=== PATIENT | female | born 1985 | race African-American/Black ===

== ENCOUNTER 2017-03-15 17:14 | Emergency (ER) | payer OTHER ==
[~2017-03-15] VITALS: Ht 167.6 cm; Wt 74.8 kg
[2017-03-15 17:37] VITALS: BP 105/77
[2017-03-15 18:07] LABS: APPEARANCE,URINE CLEAR; KETONES,URINE NEGATIVE (NEGATIVE); LEUKOCYTE ESTERASE ,URINE NEGATIVE (NEGATIVE); NITRITE,URINE NEGATIVE (NEGATIVE); PH,URINE 8 (4.5-8.0); PROTEIN,URINE NEGATIVE (NEGATIVE); UROBILINOGEN,URINE 4 MG/DL (0.0-1.0)
[2017-03-15] MEDS ORDERED: Ketorolac 30mg Inj IM ONE (18:30)
[2017-03-15] MEDS ORDERED: Methocarbamol 750mg tab ORAL ONE (18:30)
[2017-03-15] MEDS ORDERED: IBUPROFEN600 MG ORAL (18:31)
[2017-03-15] MEDS ORDERED: ROBAXIN-750750 MG PO (18:31)
[2017-03-15 18:50] VITALS: BP 105/77
--- NOTE | 2017-03-15 21:58 | Emergency Room Report ---
History of Present Illness General Chief Complaint: Back Pain-No Injury Source: Patient Present Illness HPI The patient is a 31-year-old female presenting with left lower back pain which began 2 days prior for no known reason. Pain is described as an 8/10 dull ache it is worse with movement such as bending down. She denies prior injury to this area. She denies any radiating pain. She has not tried any medication. She denies any other symptoms including N, V, F, chills, dysuria, hematuria, increased urinary frequency, vaginal DC, abd pain, CP, SOB Allergies: Coded Allergies: No Known Allergies (Unverified , 03/15/17) Patient History Past Medical History: see triage record Pertinent Family History: none Now: No Reviewed Nursing Documentation: PMH: Agreed, PSxH: Agreed Nursing Documentation-PMH Past Medical History: No Stated History Review of Systems All Other Systems: negative except mentioned in HPI Physical Exam Vital Signs Date Time Temp Pulse Resp B/P Pulse Ox O2 Delivery O2 Flow Rate FiO2 03/15/17 17:28 98.1 96 15 108/73 98 Room Air Sp02 EP Interpretation: reviewed, normal General Appearance: no apparent distress, alert, GCS 15, non-toxic Head: normocephalic, atraumatic Eyes: bilateral eye PERRL, bilateral eye normal inspection Respiratory: chest non-tender, lungs clear, normal breath sounds, speaking full sentences Gastrointestinal: normal bowel sounds, non tender, soft, non-distended, no guarding, no rebound Genitourinary: normal inspection, no CVA tenderness Musculoskeletal: gait/station normal, normal range of motion, no calf tenderness, tender - L lower paraspinous muscles Neurologic: alert, oriented x3, responsive, motor strength/tone normal, sensory intact, speech normal Psychiatric: judgement/insight normal, memory normal, mood/affect normal, no suicidal/homicidal ideation Skin: normal color, no rash, warm/dry, well hydrated Lymphatic: no adenopathy Medical Decision Making PA Attestation Dr. Sandoval is my supervising physician. Patient management was discussed with my supervising physician Diagnostic Impression: Primary Impression: Muscle strain ER Course The patient is a 31-year-old female presenting with left lower back pain which began 2 days prior Ddx considered include but not limited to lumbar strain, degenerative disease, pyelonephritis PE; vitals WNL. NAD. Back: No obvious deformity. No midline tenderness. Full active range of motion. No CVA tenderness. No lesions, abrasions or ecchymosis seen. + TTP over the L lower paraspinous muscles normal gait Urinalysis is unremarkable. The patient is given Toradol and Robaxin for pain with good relief. She will be discharged home with a prescription for Motrin and Robaxin. ER precautions given Laboratory Tests Test 03/15/17 18:00 Urine Color Pale yellow Urine Appearance Clear Urine pH 8 (4.5-8.0) Urine Specific [place] 1.015 (1.005-1.035) Urine Protein Negative (NEGATIVE) Urine Glucose (UA) Negative (NEGATIVE) Urine Ketones Negative (NEGATIVE) Urine Occult Blood Negative (NEGATIVE) Urine Nitrite Negative (NEGATIVE) Urine Bilirubin Negative (NEGATIVE) Urine Urobilinogen 4 MG/DL (0.0-1.0) H Urine Leukocyte Esterase Negative (NEGATIVE) Urine HCG, Qualitative Negative Lab Results Impression Unremarkable Last Vital Signs Date Time Temp Pulse Resp B/P Pulse Ox O2 Delivery O2 Flow Rate FiO2 03/15/17 18:50 97.9 92 15 105/77 98 Room Air Status: improved Disposition: HOME, SELF-CARE Condition: Improved Scripts Methocarbamol* (ROBAXIN-750*) 750 Mg Tablet 750 MG PO TID, #21 TAB 0 Refills Prov: LINDA NOGUERA.Mukund. 03/15/17 Ibuprofen* (MOTRIN*) 600 Mg Tablet 600 MG ORAL Q8H Y for For Pain, #30 TAB 0 Refills Prov: LINDA NOGUERA P.A. 03/15/17 Referrals: NATASHA DIAS [facility],REFERRI (PCP) Patient Instructions: Back Pain, Adult Additional Instructions: I discussed my findings with the patient. All questions and concerns have been answered. Treatment and medication compliance have been addressed. I advised the patient that they need to follow up with PMD in 3-5 days. Return to ED if pain remains or worsens, numbness or tingling occurs, new rash is noticed, fever is noticed, or if needed for any reason. Patient verbalized understanding of discharge instructions. LINDA NOGUERA Mar 15, 2017 21:58
== END 2017-03-15 18:52 | disposition home or self-care (01) ==
LOC: EMR 18:05
DX: S39.012A Strain of muscle, fascia and tendon of lower back, initial encounter (principal); X58.XXXA Exposure to other specified factors, initial encounter; Y93.9 Activity, unspecified; Y92.9 Unspecified place or not applicable
CPT/HCPCS: 81003; 81025; 96372; 99284; J1885

== ENCOUNTER 2017-12-25 11:17 | Emergency (ER) | payer OTHER ==
[~2017-12-25] VITALS: Ht 167.6 cm; Wt 70.3 kg
[~2017-12-25 11:17] MED LIST: IBUPROFEN600 MG ORAL; ROBAXIN-750750 MG PO
[2017-12-25 11:54] VITALS: BP 110/70
[2017-12-25] MEDS ORDERED: IBUPROFEN800 MG ORAL (12:22)
[2017-12-25] MEDS ORDERED: ROBAXIN-750750 MG PO (12:22)
[2017-12-25] MEDS ORDERED: Methocarbamol 750mg tab ORAL ONE (12:30)
--- NOTE | 2017-12-25 12:38 | Emergency Room Report ---
History of Present Illness General Chief Complaint: Lower Back Pain or Injury Source: Patient Present Illness HPI 32YOF with 2-3 days low back pain Heavy lifting/moving at home No fever/chills, urinary complaints. Pain worse with movement, bending over Denies lower extremity weakness, urinary/fecal incontinence Took motrin once with mild improvement Allergies: Coded Allergies: No Known Allergies (Unverified , 03/15/17) Patient History Past Medical History: none Past Surgical History: none Pertinent Family History: none Social History: Denies: smoking, alcohol use, drug use Last Menstrual Period: 2 weeks ago Now: No Immunizations: UTD Reviewed Nursing Documentation: PMH: Agreed, PSxH: Agreed Nursing Documentation-PMH Past Medical History: No History, Except For Hx Gastrointestinal Problems: Yes - gastritis, GERD Review of Systems All Other Systems: negative except mentioned in HPI Physical Exam Vital Signs Date Time Temp Pulse Resp B/P (MAP) Pulse Ox O2 Delivery O2 Flow Rate FiO2 12/25/17 11:30 97.9 101 18 109/71 98 Room Air Sp02 EP Interpretation: reviewed, normal General Appearance: normal inspection, well appearing, no apparent distress, alert, GCS 15, non-toxic Head: normocephalic, atraumatic Eyes: bilateral eye PERRL, bilateral eye EOMI ENT: normal ENT inspection, hearing grossly normal, normal pharynx, no angioedema, normal voice, TMs + canals normal, uvula midline, moist mucus membranes Neck: normal inspection, full range of motion, supple, thyroid normal, no meningismus, no bony tend Respiratory: normal inspection, lungs clear, normal breath sounds, no rhonchi, no respiratory distress, no retraction, no accessory muscle use, no wheezing, speaking full sentences Cardiovascular #1: regular rate, rhythm, no edema, no JVD, normal capillary refill Gastrointestinal: normal inspection, normal bowel sounds, non tender, soft, no mass, no peritonitis, non-distended, no guarding, no hernia, no pulsatile mass Genitourinary: no CVA tenderness Musculoskeletal: normal inspection, back normal, normal range of motion, no calf tenderness, pelvis stable, Adrienne's Sign negative Neurologic: normal inspection, alert, oriented x3, responsive, well logging mud analysis captain III-XII nml as tested, motor strength/tone normal, cerebellar normal, normal gait, speech normal Psychiatric: normal inspection, judgement/insight normal, mood/affect normal, no suicidal/homicidal ideation, no delusions Skin: normal inspection, normal color, no rash Lymphatic: normal inspection, no adenopathy Medical Decision Making Diagnostic Impression: Primary Impression: Muscle strain ER Course VSS, Afebrile Non-focal back on exam Likely MSK strain No concern for cord compression or pyelo ER course: Patient has remained stable during ED stay. Disposition: Patient is to be discharged to home. Prescriptions given are motrin, robaxin Patient is instructed to follow up with their primary care doctor within 5 days. Strict return precautions discussed with patient such as fever, chills, worsening/severe pain, nausea, vomiting, which may indicate severe illness. Patient verbalizes understanding and agrees with plan. Please note that this Emergency Department Report was dictated using bigtincanmagazine filler technology software, occasionally this can lead to erroneous entry secondary to interpretation by the dictation equipment Last Vital Signs Date Time Temp Pulse Resp B/P (MAP) Pulse Ox O2 Delivery O2 Flow Rate FiO2 12/25/17 11:54 82 18 110/70 99 Room Air 12/25/17 11:30 97.9 Status: improved Disposition: HOME, SELF-CARE Condition: Improved Scripts Methocarbamol* (ROBAXIN-750*) 750 Mg Tablet 750 MG PO TID for 7 Days, #30 TAB 0 Refills Prov: DAVIN STEPHEN M.D. 12/25/17 Ibuprofen* (MOTRIN*) 800 Mg Tablet 800 MG ORAL THREE TIMES A DAY for low back pain for 7 Days, #30 TAB 0 Refills Prov: DAVIN STEPHEN M.D. 12/25/17 Referrals: [facility]/,REFERRING (PCP) Patient Instructions: Back Pain, Adult DAVIN STEPHEN M.D. Dec 25, 2017 12:38
[2017-12-25 12:57] VITALS: BP 105/70
== END 2017-12-25 12:57 | disposition home or self-care (01) ==
LOC: EMR 12:01
DX: S39.012A Strain of muscle, fascia and tendon of lower back, initial encounter (principal); X58.XXXA Exposure to other specified factors, initial encounter; Y92.9 Unspecified place or not applicable; K21.9 Gastro-esophageal reflux disease without esophagitis
CPT/HCPCS: 99283

== ENCOUNTER 2018-09-01 09:53 | Emergency (ER) | payer OTHER ==
[~2018-09-01] VITALS: Ht 167.6 cm; Wt 68.0 kg
[~2018-09-01 09:53] MED LIST changes: +IBUPROFEN800 MG ORAL
[2018-09-01] MEDS ORDERED: NKM (10:43)
[2018-09-01 10:56] LABS: BASOPHILS % (AUTO) 0.5 % (0.0-2.0); EOSINOPHILS % (AUTO) 0.7 % (0.0-3.0); HEMATOCRIT 33.2 % (37.0-47.0); HEMOGLOBIN 10.4 G/DL (12.0-16.0); LYMPHOCYTES % (AUTO) 16.3 % (20.0-45.0); MEAN CORPUSCULAR VOLUME 86 FL (80-99); MONOCYTES % (AUTO) 8.8 % (1.0-10.0); NEUTROPHILS % (AUTO) 73.8 % (45.0-75.0); PLATELET COUNT 385 K/UL (150-450); RED BLOOD COUNT 3.88 M/UL (4.20-5.40); RED CELL DISTRIBUTION WIDTH 14.4 % (11.6-14.8); WHITE BLOOD COUNT 8.8 K/UL (4.8-10.8)
[2018-09-01] MEDS ORDERED: Albuterol ud Inhalation HHN ONE (11:00)
[2018-09-01] MEDS ORDERED: Ketorolac 30mg Inj IV ONE (11:00)
[2018-09-01 11:16] LABS: ANION GAP 9 mmol/L (5-15); BLOOD UREA NITROGEN 11 mg/dL (7-18); CARBON DIOXIDE 27 MMOL/L (21-32); CHLORIDE 104 MMOL/L (98-107); CREATININE 0.9 MG/DL (0.55-1.30); SODIUM 140 MMOL/L (136-145)
[2018-09-01 11:21] LABS: ALANINE AMINOTRANSFERASE 29 U/L (12-78); ALBUMIN 3.2 G/DL (3.4-5.0); ALBUMIN/GLOBULIN RATIO 0.8 (1.0-2.7); ALKALINE PHOSPHATASE 140 U/L (46-116); ASPARTATE AMINO TRANSFERASE 38 U/L (15-37); BILIRUBIN,TOTAL 0.3 MG/DL (0.2-1.0)
--- NOTE | 2018-09-01 11:29 | Diagnostic Imaging Report ---
Indication: Cough Comparison: None A single view chest radiograph was obtained. Findings: Cardiomediastinal appearance is within normal limits for age. The lungs are clear. Pulmonary vascularity is appropriate. The diaphragmatic contour is smooth and costophrenic angles are sharp. No pleural effusions are identified. The bones are unremarkable. Impression: No acute findings
[2018-09-01 11:54] VITALS: BP 131/79
--- NOTE | 2018-09-01 11:56 | Emergency Room Report ---
History of Present Illness General Chief Complaint: Flu Like Symptoms Source: Patient, Medical Record Present Illness HPI The patient states she has a history of seasonal allergies and mild occasional asthma. She typically only uses albuterol inhalers at season changes. She states that she has had a cough with yellow sputum production and body aches and chills for the past few days. She states that the cough is persistent. She denies abdominal pain. She denies nausea or vomiting. She has no other complaints. Allergies: Coded Allergies: No Known Allergies (Unverified , 03/15/17) Patient History Past Medical History: see triage record, asthma, GERD, other - seasonal allergies Social History: Denies: smoking, alcohol use, drug use Last Menstrual Period: 08/22/18 Reviewed Nursing Documentation: PMH: Agreed; PSxH: Agreed Nursing Documentation-PMH Past Medical History: No History, Except For Hx Asthma: Yes Hx Gastrointestinal Problems: Yes - gastritis, GERD Review of Systems All Other Systems: negative except mentioned in HPI Physical Exam Vital Signs Date Time Temp Pulse Resp B/P (MAP) Pulse Ox O2 Delivery O2 Flow Rate FiO2 09/01/18 09:57 98.8 120 18 122/75 97 Room Air 98.8 09/01/18 11:35 21 Sp02 EP Interpretation: reviewed, normal General Appearance: no apparent distress, alert, GCS 15, non-toxic Head: normocephalic, atraumatic Eyes: bilateral eye normal inspection, bilateral eye PERRL ENT: hearing grossly normal, normal pharynx, no angioedema, normal voice Neck: full range of motion, supple/symm/no masses Respiratory: chest non-tender, lungs clear, normal breath sounds, no respiratory distress, no retraction, no accessory muscle use, speaking full sentences Cardiovascular #1: regular rate, rhythm, no edema Gastrointestinal: normal bowel sounds, non tender, soft, non-distended, no guarding, no rebound Rectal: deferred Musculoskeletal: back normal, gait/station normal, normal range of motion, non- tender Neurologic: alert, oriented x3, responsive, motor strength/tone normal, sensory intact, speech normal Psychiatric: judgement/insight normal, memory normal, mood/affect normal, no suicidal/homicidal ideation Skin: normal color, no rash, warm/dry, well hydrated Medical Decision Making Diagnostic Impression: Primary Impression: URI, acute Additional Impression: Asthma exacerbation ER Course This patient has a clinical presentation consistent with asthma exacerbation. Patient has a history of asthma and has wheezing on physical exam. The patient was given albuterol and Atrovent nebulizer treatments. The patient was also given prednisone orally. The patient had significant improvement in subjective shortness of breath. The patient's lung exam improved significantly. I will also treat the patient with a course of antibiotics as this has been shown to improve the course of an asthma exacerbation. The patient was given close return precautions and followup instructions. Laboratory Tests Test 09/01/18 10:24 09/01/18 10:48 Sodium Level 140 MMOL/L (136-145) Potassium Level 4.0 MMOL/L (3.5-5.1) Chloride Level 104 MMOL/L (98-107) Carbon Dioxide Level 27 MMOL/L (21-32) Anion Gap 9 mmol/L (5-15) Blood Urea Nitrogen 11 mg/dL (7-18) Creatinine 0.9 MG/DL (0.55-1.30) Estimate Glomerular Filtration Rate > 60 mL/min (>60) Glucose Level 131 MG/DL (74-106) H Calcium Level 9.0 MG/DL (8.5-10.1) Total Bilirubin 0.3 MG/DL (0.2-1.0) Aspartate Amino Transferase (AST) 38 U/L (15-37) H Alanine Aminotransferase (ALT) 29 U/L (12-78) Alkaline Phosphatase 140 U/L (46-116) H Total Protein 7.3 G/DL (6.4-8.2) Albumin 3.2 G/DL (3.4-5.0) L Globulin 4.1 g/dL Albumin/Globulin Ratio 0.8 (1.0-2.7) L White Blood Count 8.8 K/UL (4.8-10.8) Red Blood Count 3.88 M/UL (4.20-5.40) L Hemoglobin 10.4 G/DL (12.0-16.0) L Hematocrit 33.2 % (37.0-47.0) L Mean Corpuscular Volume 86 FL (80-99) Mean Corpuscular Hemoglobin 26.8 PG (27.0-31.0) L Mean Corpuscular Hemoglobin Concent 31.3 G/DL (32.0-36.0) L Red Cell Distribution Width 14.4 % (11.6-14.8) Platelet Count 385 K/UL (150-450) Mean Platelet Volume 6.4 FL (6.5-10.1) L Neutrophils (%) (Auto) 73.8 % (45.0-75.0) Lymphocytes (%) (Auto) 16.3 % (20.0-45.0) L Monocytes (%) (Auto) 8.8 % (1.0-10.0) Eosinophils (%) (Auto) 0.7 % (0.0-3.0) Basophils (%) (Auto) 0.5 % (0.0-2.0) Microbiology Date/Time Source Procedure Growth Status 09/01/18 10:24 Nasal Nares Influenza Types A,B Antigen (ALEJANDRA) - Final Complete EKG Diagnostic Results Rate: tachycardiac Rhythm: other - S.tachycardia ST Segments: no acute changes Rhythm Strip Diag. Results EP Interpretation: yes Rate: 110's Rhythm: no PVC's, no ectopy, other - s.tachycardia Chest X-Ray Diagnostic Results Chest X-Ray Diagnostic Results : Chest X-Ray Ordered: Yes # of Views/Limited/Complete: 1 View Indication: Other - cough EP Interpretation: Yes Interpretation: no consolidation, no effusion, no pneumothorax, no acute cardiopulmonary disease Impression: No acute disease Electronically Signed by: Breezy Last Vital Signs Date Time Temp Pulse Resp B/P (MAP) Pulse Ox O2 Delivery O2 Flow Rate FiO2 09/01/18 11:47 90 20 100 Room Air 21 09/01/18 11:37 98.8 09/01/18 09:57 122/75 Status: improved Disposition: HOME, SELF-CARE Condition: Improved [facility]errals: [facility] (PCP) Cece Romeo DO Sep 01, 2018 11:56
[2018-09-01] MEDS ORDERED: ROBITUSSIN NIG237 ML PO (12:16)
[2018-09-01] MEDS ORDERED: PREDNISONE20 MG ORAL (12:16)
[2018-09-01] MEDS ORDERED: ALBUTEROL SULF8.5 GM INH (12:16)
[2018-09-01] MEDS ORDERED: ZITHROMAX250 MG ORAL (12:16)
[2018-09-01 12:26] VITALS: BP 131/79
--- NOTE | 2018-09-02 14:55 | Cardiology Report ---
APPROVED REPORT EKG Measurement Heart [id number] Sinus tachycardia Otherwise normal ECG
== END 2018-09-01 12:26 | disposition home or self-care (01) ==
LOC: EMR 10:15
DX: J06.9 Acute upper respiratory infection, unspecified (principal); J45.909 Unspecified asthma, uncomplicated; K21.9 Gastro-esophageal reflux disease without esophagitis
CPT/HCPCS: 36415; 71045; 80053; 85025; 86710; 93005; 94640; 94664; 96374; 99284; J1885; J7512

== ENCOUNTER 2018-09-23 14:19 | Emergency (ER) | payer OTHER ==
[~2018-09-23] VITALS: Ht 167.6 cm; Wt 68.0 kg
[~2018-09-23 14:19] MED LIST changes: +ALBUTEROL SULF8.5 GM INH; +NKM; +PREDNISONE20 MG ORAL; +ROBITUSSIN NIG237 ML PO; +ZITHROMAX250 MG ORAL
[2018-09-23 14:23] VITALS: BP 133/89
[2018-09-23] MEDS ORDERED: Acetaminophen 500mg (ES) tab ORAL ONE (15:00)
[2018-09-23] MEDS ORDERED: Methocarbamol 500mg tab ORAL ONE (15:00)
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
--- NOTE | 2018-09-23 16:17 | Diagnostic Imaging Report ---
Indication: Neck Pain Findings: 3 views of the cervical spine were obtained. There is slight reversal cervical lordosis. There is narrowing of the C5-6 disc and mild endplate osteophyte formation. There is no fracture or soft tissue swelling identified. Open-mouth view is negative. IMPRESSION: No acute injury. Reversal cervical lordosis which may be due to muscle spasm. Mild degenerative spondylosis.
--- NOTE | 2018-09-23 16:18 | Diagnostic Imaging Report ---
Indication: left shoulder pain Findings: 3 views of the left shoulder were obtained. Alignment of the left shoulder is normal. No acute fracture is identified. Soft tissues are unremarkable. Impression: No acute injury
[2018-09-23] MEDS ORDERED: LIDOCAINE700 M1 TP (16:49)
[2018-09-23] MEDS ORDERED: ROBAXIN500 MG PO (16:49)
[2018-09-23] MEDS ORDERED: TYLENOL EXTRA500 MG ORAL (16:49)
[2018-09-23 17:01] VITALS: BP 133/89
== END 2018-09-23 17:02 | disposition home or self-care (01) ==
LOC: EMR 15:00
DX: M62.838 Other muscle spasm (principal); M25.512 Pain in left shoulder; J45.909 Unspecified asthma, uncomplicated; K21.9 Gastro-esophageal reflux disease without esophagitis
CPT/HCPCS: 72040; 99284

== ENCOUNTER 2018-10-05 00:11 | Emergency (ER) | payer OTHER ==
[~2018-10-05] VITALS: Ht 167.6 cm; Wt 72.6 kg
[~2018-10-05 00:11] MED LIST changes: +LIDOCAINE700 M1 TP; +ROBAXIN500 MG PO; +TYLENOL EXTRA500 MG ORAL
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
[2018-10-05] MEDS ORDERED: Ketorolac 30mg Inj IM ONE (01:00)
[2018-10-05] MEDS ORDERED: oxyCODONE HCL/Acetaminophen 5/325mg PO ONE (01:00)
[2018-10-05 01:04] LABS: APPEARANCE,URINE CLEAR; BILIRUBIN, URINE NEGATIVE (NEGATIVE); GLUCOSE, URINE (UA) NEGATIVE (NEGATIVE); KETONES,URINE 1+ (NEGATIVE); LEUKOCYTE ESTERASE ,URINE 1+ (NEGATIVE); NITRITE,URINE NEGATIVE (NEGATIVE); PH,URINE 5 (4.5-8.0); PROTEIN,URINE 1+ (NEGATIVE); UROBILINOGEN,URINE 4 MG/DL (0.0-1.0)
[2018-10-05 01:05] LABS: COLOR,URINE YELLOW
[2018-10-05] MEDS ORDERED: ROBAXIN500 MG PO (02:48)
[2018-10-05] MEDS ORDERED: IBUPROFEN600 MG ORAL (02:48)
[2018-10-05 02:50] VITALS: BP 102/65
[2018-10-05 03:06] VITALS: BP 102/65
== END 2018-10-05 03:00 | disposition home or self-care (01) ==
LOC: EMR 00:36
DX: S40.012A Contusion of left shoulder, initial encounter (principal); S70.12XA Contusion of left thigh, initial encounter; S70.11XA Contusion of right thigh, initial encounter; S50.12XA Contusion of left forearm, initial encounter; W19.XXXA Unspecified fall, initial encounter; Y92.9 Unspecified place or not applicable; J45.909 Unspecified asthma, uncomplicated; K21.9 Gastro-esophageal reflux disease without esophagitis
CPT/HCPCS: 71045; 73030; 80307; 81003; 81025; 96372; 99283; J1885